=== PATIENT | female | born 1995 | race Caucasian/White ===

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

== ENCOUNTER → 2017-10-26 21:10 | Observation (INO) ==
[2017-10-26 19:28] LABS: Amphetamine Screen,Urine Negative ng/mL (Cutoff=1000); Barbiturate Screen,Urine Negative ng/mL (Cutoff=200); Benzodiazepines Screen,Urine Negative ng/mL (Cutoff=200); Cannabinoid Screen,Urine Negative ng/mL (Cutoff = 50); Cocaine Screen,Urine Negative ng/mL (Cutoff= 300); Opiate Screen,Urine Negative ng/mL (Cutoff=300); Phencyclidine Screen,Urine Negative ng/mL (Cutoff=25)
--- NOTE | 2017-10-26 20:56 | OB/GYN Progress Note ---
Date of Encounter: 10/27/17 Time of Encounter: 20:55 - Assessment and Plan (1) 36 weeks gestation of Status: Acute (2) Uterine contractions Status: Acute Frequent contractions on toco. SVE 3/80/-1, unchanged after 2 hours. Pt requesting discharge home. We discussed having her stay a couple more hours since she lives 45 minutes away and has transportation issues. Pt declines. Friend with pt at this time states she will be available through night to bring pt back if needed. Discharge home with precautions. (3) Vaginal bleeding during Status: Acute Post-coital spotting reported. No bleeding on exam now. Subjective - Subjective Interval history: 21 year-old presenting to L&D via helicopter from [facility] for vaginal bleeding and contractions. She reports she had some spotting that started this afternoon and she had a small, dime size, clot x1. No bleeding since. Last intercourse last evening. She also reports frequent contractions. No gushes of fluid or heavy bleeding. Good FM. No other complaints. Antepartum ROS: vaginal bleeding, movement normal, contractions, no loss of fluid Objective - Vital Signs Vital Signs: Intake and Output 10/26/17 10/26/17 10/26/17 07:59 15:59 23:59 Other: Weight 72.575 kg Patient Weight 10/26/17 23:59 Weight 72.575 kg - Exam FHR: category 1 FHR comments: NST reactive Auscultation: bilateral: normal Abdomen: Present: soft, gravid Uterus: Present: normal Cervical dilation: 80/-1 repeat after 2 hours unchanged Comments: no vaginal bleeding noted on exam
== END | disposition home or self-care (01) ==
LOC: 1NENULAB
PROVIDERS: ADMIT Registered Nurse; ATTEND Registered Nurse

== ENCOUNTER 2017-11-03 22:37 | Inpatient (IN) ==
[2017-11-03 21:05] LABS: Basophils % 0.2 %; Eosinophils % 0.3 %; Hemoglobin 10.3 g/dL (11.5-15.4); Immature Granulocytes % 1.1 % (0-4); Lymphocytes # 1.5 K/mcL (0.6-4.6); Lymphocytes % 14.6 %; Mean Corpuscular HGB Conc 34.3 g/dL (31.6-35.5); Mean Corpuscular Hemoglobin 31.5 pg (28.0-33.3); Mean Corpuscular Volume 91.7 fL (83.0-100.0); Mean Platelet Volume 10.3 fL (9.4-12.4); Monocytes # 1.3 K/mcL (0.0-1.3); Neutrophils # 7.3 K/mcL (1.6-8.9); Platelet Count 174 K/mcL (140-400); Red Blood Count 3.27 M/mcL (3.82-4.97); Segmented Neutrophils % 70.8 %
--- NOTE | 2017-11-03 21:08 | OB/GYN History & Physical ---
Date of Encounter: 11/03/17 Time of Encounter: 20:37 Assessment and Plan (1) Spontaneous rupture of amniotic membranes Current visit: Yes Status: Acute (2) 37 weeks gestation of Current visit: Yes Status: Acute (3) Intrauterine Current visit: Yes Status: Acute Admit to labor and delivery for observation of labor Expectant management Labs-CBC and clot to hold May have epidural upon request Continuous monitoring Anticipate Dr. Suero is OB sexual assault response coordinator and is available as needed History of Present Illness Chief complaint: SROM HPI: Ms. Galvan is a 21 year old female at 37 weeks 1 day gestation with an estimated date of of 11/23/17 dated by LMP. She presents with complaints of spontaneous rupture membranes at 1820 this evening. She states shortly after contractions started. She denies odor to fluid. She endorses good movement and denies vaginal bleeding. This has been uncomplicated. She is seen Dr. Hannon throughout her . records are available electronically and have been reviewed. Labs: B+ GBS- Hep B- HIV- T. Palladium- GC/CL- Rubella immune Varicella immune Past Med Surg Social Fam HX - Past Medical History Medical history: non-contributory Psychiatric history: no psych history - Past Surgical History Additional surgical history: tonsillectomy - Social History Smoking Status: Current every day smoker Smokeless Tobacco Status: No Alcohol use: none Drug use: none - Family History Mother Living Status: Still Living Hx Family Cardiac Disorders: Yes (HTN) Hx Family Respiratory Disorders: No Hx Family Cancer: No Hx Family GI Disorders: No Hx Family Endocrine Disorder: No Hx Family Neuromuscular Disorders: No Hx Family Neurologic Disorders: No Hx Family HEENT Disorders: No Hx Family Autoimmune Disorders: No Obstetrical History - Pregnancies : 2 Para: 1 Term: 1 (09/2016, IOL, 39wks, male, 8lb 1oz, no complications, Roger) : 0 Ab's: 0 Livin Medications and Allergies Vit/FA 1 each PO BID 11/03/17 [History] 3 Allergy/AdvReac Type Severity Reaction Status Date / Time No Known Allergies Allergy Verified 08/12/17 10:56 Review of System OB All systems PM: reviewed and no additional remarkable complaints except as stated Exam - Constitutional Constitutional: well developed, well nourished, average body habitus, moderate distress - HEENT HEENT: PERRL, Normocephaly, Mucus Membranes Moist - Neck Neck exam: full ROM - Lungs Respiratory exam: CTAB - Cardiovascular Cardiovascular exam: RRR, +S1, +S2 - Breasts Breast: bilateral: normal - Abdomen Abdomen: Present: bowel sounds normal, gravid, non tender - Extremities Extremities exam: full ROM, normal capillary refill, normal inspection, pedal edema, radial pulses palpable and symmetrical - Vulva Vulva: bilateral: normal - Vagina Vagina: Present: normal moisture - Cervix Dilation: 6 Effacement: 90 Station: +1 - Uterus Uterus exam: Present: normal size, normal contour - Adnexa Adnexa: bilateral: normal - Anus/Rectum Anus/Rectum: Present: normal perianal skin Results Result Diagrams: 11/03/17 20:50 All other labs normal. - VTE Reasons for not Prescribing Prophylaxis: Treatment not Indicated - Low risk for VTE
--- NOTE | 2017-11-03 21:20 | Anesthesia Evaluation PreOp ---
Date of Encounter: 11/03/17 Time of Encounter: 19:10 - Past History Planned Operation: MJ Pulmonary History: Smoker, Pack/yr (1/2pk per day x 1 yr) EMBOSSER APPRENTICE History: Denies Any Significant HX Other Medical History: Denies Any Significant HX Anesthesia History: No Prior Anesthetic Complications, Past Anesthesia ( tonsillectomy) : Yes Alcohol Use: none Drug use: none Medications and Allergies Vit/FA 1 each PO BID 11/03/17 [History] 3 Allergy/AdvReac Type Severity Reaction Status Date / Time No Known Allergies Allergy Verified 08/12/17 10:56 - Meds/Allergy Pre-op Review Medications Reviewed: Yes Allergies Reviewed: Yes Beta Blockers on Current Med List: No Anesthesia Results - Labs 11/03/17 20:50 Anesthesia Exam BP 139/80 P 120 R 18 T 97.8 Height: 5'3" Weight: 167.4 lbs NPO (# of Hours): 2 Pain Scale: 6 Pain Scale Used: Numeric (1 - 10) - HEENT Pupil (Motor): Pupils equal Mallampati: II Teeth: Normal Oral Opening: Greater than 3 - EMBOSSER APPRENTICE LOC: Oriented EMBOSSER APPRENTICE Motor: Normal RUE, Normal LUE, Normal RLE, Normal LLE, Normal Face EMBOSSER APPRENTICE Sensory: Normal: RUE, LUE, RLE, LLE, Face - Cardiac Rhythm: Regular Murmur: None JVD: No Carotid Bruit: No - Pulmonary Breath Sounds: bilateral Clear Respiratory Effort: Symmetrical Anesthesia Assess/Plan ASA Score: 2 Modified Genesis Scale for Level of Consciousness: Cooperative, oriented, and tranquil Anesthetic Plan: Regional Autologous Blood: Yes Monitoring Plan: Standard Monitors Recovery Plan: Other
--- NOTE | 2017-11-03 22:00 | Anesthesia Procedures ---
Date of Encounter: 11/03/17 Time of Encounter: 21:19 Procedures: Anesthesia - Epidural/Spinal Patient ID/Chart reviewed: Yes Patient examined: Yes OB Eval: Gestational age: 37.1 OB Eval: : 2 OB Eval: Hx Para: 1 OB Eval: Dilated at (cm): 6 OB Eval: Contractions: Non-stressed pattern Consent Obtained: Yes Supplemental Oxygen: None/Room Air Site Prep: Aseptic Technique, Sterile prep and drape, Povidone-Iodine 1% Patient position: upright Local Anesthetic: Lidocaine 1% Amount of Local Anesthetic used: 3 Touhy Needle Gauge: 18 Touhy Needle Depth (cm): 6 Catheter Depth at Skin (cm): 15 Test Dose (1.5% Lido + Epi): Volume given (mls): 3 Test Dose Result: Negative Loading Dose: 0.25% Marcaine (mls): 10 Loading Dose: Fentanyl (mcg): 100 Loading Dose Administered: Thru Catheter Infusion Med: 0.125% Bupivacaine w/ 2 mcg/ml Fentanyl Infusion Rate (mls/hr): [address]: Tegaderm, Tape Interspace Used: L3-L4 Loss of Resistance (DONALD): Yes Blood: No CSF: No Paresthesia: No Procedure: MJ placed 1st pass in upright position without any immediate noted complications VSS and FHT stable throughout. Vitals + FHT's: 2119 BP 139/80 P 120 R 20 2145 BP 128/67 P 107 FHT 146
--- NOTE | 2017-11-03 22:07 | OB Labor Progress Note ---
Date of Encounter: 11/03/17 Time of Encounter: 22:05 Labor Progress Note - Subjective Subjective: Patient becoming more comfortable with epidural - Cervix Cervix: 9/100/+1 - Heart Tones Heart Tones: Baseline 150 Moderate variability Accelerations present 15 x 15 Variable decelerations FHR category II - [place]: Contractions every 2-4 minutes and palpate strong - Interventions Interventions: SVE - Plan Plan: Continue expectant management Kira vallejo Anticipate
[2017-11-03 22:15] LABS: Amphetamine Screen,Urine Negative ng/mL (Cutoff=1000); Barbiturate Screen,Urine Negative ng/mL (Cutoff=200); Benzodiazepines Screen,Urine Negative ng/mL (Cutoff=200); Cannabinoid Screen,Urine Negative ng/mL (Cutoff = 50); Cocaine Screen,Urine Negative ng/mL (Cutoff= 300); Opiate Screen,Urine Negative ng/mL (Cutoff=300); Phencyclidine Screen,Urine Negative ng/mL (Cutoff=25)
[~2017-11-03 22:37] MED LIST: *HR* FentaNYL (PF) 100 MCG/2 ML VIAL EP ONE; *HR* FentaNYL (PF) 100 MCG/2 ML VIAL ONE; *HR* Nalbuphine 10 MG/ML AMPUL IVP PRN; Bupivacaine-MPF 0.25% 10 ML VIAL EP ONE; Bupivacaine-MPF 0.25% 10 ML VIAL ONE; EPHEDrine 50 MG/ML VIAL IVP PRN; Epidural Premix (fent/bupiv) 110 ML EP ONE; Epidural Premix (fent/bupiv) 110 ML EP SCH; Famotidine 20 MG/2 ML VIAL IVP PRN; Lidocaine -MPF 1% 5 ML AMPUL ONE; Lidocaine 1% 20 ML MDV ONE; Metoclopramide 10 MG/2 ML VIAL IVP PRN; Naloxone 0.4 MG/ML INJ IVP PRN; Ondansetron 4 MG/2 ML VIAL IVP PRN; Ringers Solution, Lactated 1,000 ML IVC SCH; Ringers Solution, Lactated 1,000 ML ONE
--- NOTE | 2017-11-03 23:21 | OB/GYN Procedure Note ---
Delivery - Delivery Date: 11/03/17 Provider: Halie Lopez Intrapartum events: none Delivery induction: none Delivery monitor: external FHT, external uterine Anesthesia: epidural Quantitated Blood Loss: 300 - (s) Infant A Delivery Date: 11/03/17 Infant Delivery Time: 23:01 Presentation: vertex Position: JASBIR Route of delivery: Gender: Female Viability: Viable Pounds: 6 Ounces: 4 Weight Gram: 2.835 kg at 1 minute: 8 at 5 mins: 9 Shoulder Dystocia: not encountered Specimens collected: cord blood Placenta: spontaneous Cord: nuchal cord, 3 umbilical vessels, delivered through nuchal - Repair Episiotomy: none Laceration Description: None - Complications Delivery complications: none Delivery comments: This is a 21-year-old G2 now P2 who was admitted for active labor with spontaneous rupture of membranes. She progressed spontaneously to the second stage of labor. She pushed for 1 contraction. A nuchal cord 1 was identified. The was delivered through the nuchal cord. She delivered a viable female infant, JASBIR over an intact perineum. The infant was placed on the maternal abdomen where the mouth and nares were suctioned by nursery. scores were 8 at 1 minute and 9 at 5 minutes. The placenta delivered (Perez) spontaneously, intact, with a three-vessel cord. Inspection revealed no perineal, sidewall, or cervical lacerations. The uterus was firm with no active bleeding. EBL was 300 mL. Placenta and umbilical artery blood gas were not sent. There were no complications during the procedure. Mom and baby are stable following delivery. - Disposition Mom disposition: stable in LDR disposition: stable in LDR
[2017-11-03] MEDS ORDERED: Acetaminophen 325 MG TABLET PO PRN (23:43)
[2017-11-03] MEDS ORDERED: Benzocaine/Menthol 56 GM AEROSOL SPRAY TP PRN (23:43)
[2017-11-03] MEDS ORDERED: Oxytocin 20 units/ LR 1000 mL 20 UNIT/1,000 ML BAG IVC SCH (23:45)
[2017-11-04] MEDS: Ibuprofen 600 MG TABLET PO PRN ×4 (01:57→20:07)
[2017-11-04 05:21] LABS: Basophils % 0.2 %; Eosinophils % 0.2 %; Hematocrit 29.1 % (35.3-44.9); Hemoglobin 9.8 g/dL (11.5-15.4); Immature Granulocytes % 1.1 % (0-4); Lymphocytes # 1.5 K/mcL (0.6-4.6); Lymphocytes % 15.3 %; Mean Corpuscular HGB Conc 33.7 g/dL (31.6-35.5); Mean Corpuscular Hemoglobin 31.1 pg (28.0-33.3); Mean Corpuscular Volume 92.4 fL (83.0-100.0); Mean Platelet Volume 10.6 fL (9.4-12.4); Monocytes % 9.9 %; Neutrophils # 7.2 K/mcL (1.6-8.9); Platelet Count 175 K/mcL (140-400); Red Blood Count 3.15 M/mcL (3.82-4.97); Red Cell Distribution Width 14.1 % (11.5-14.5); Segmented Neutrophils % 73.3 %
--- NOTE | 2017-11-04 08:42 | OB/GYN Progress Note ---
Date of Encounter: 11/04/17 Time of Encounter: 08:40 - Assessment and Plan (1) Vaginal delivery Current Visit: No Status: Acute Continue routine care anticipate discharge home tomorrow (2) anemia Current Visit: Yes Status: Acute Continue ferrous sulfate daily Subjective - Subjective Principal diagnosis: day 1 vaginal delivery Interval history: Patient day 1. Patient doing well. Patient denies any pain at this time. Patient reports: appetite normal, voiding normally, pain well controlled, ambulating normally : doing well Objective - Latest Vital Signs Latest vital signs: Vital Signs Temp Pulse Resp BP Pulse Ox 11/04/17 03:55 98.6 F 96 14 117/69 97 11/04/17 03:00 98.4 F 102 14 116/67 98 11/04/17 01:45 98.8 F 94 14 126/81 98 11/04/17 01:30 98.8 F 96 16 130/81 98 11/04/17 01:15 98.8 F 104 14 127/84 100 11/04/17 01:00 98.5 F 94 14 120/68 100 11/04/17 00:45 98.6 F 99 14 126/75 100 Intake and Output 11/03/17 11/04/17 11/04/17 23:59 07:59 15:59 Output Total 450 / 450 Balance -450 / -450 Output: Urine 450 / 450 Other: Weight 75.1 kg 72.6 kg Patient Weight 11/04/17 23:59 Weight 72.6 kg - Exam Lungs: bilateral: normal Chest: Normal S1, Normal S2 Extremities: Present: normal Abdomen: Present: normal appearance, soft Uterus: Present: normal, firm Uterus Position: 1 Finger Below Umbilicus, Midline - Labs Labs: Laboratory Results - last 24 hr 11/03/17 11/03/17 11/04/17 20:36 20:50 04:43 WBC 10.3 9.9 RBC 3.27 L 3.15 L Hgb 10.3 L 9.8 L Hct 30.0 L 29.1 L MCV 91.7 92.4 MCH 31.5 31.1 MCHC 34.3 33.7 RDW 14.0 14.1 Plt Count 174 175 MPV 10.3 10.6 Immature Gran % 1.1 1.1 Seg Neutrophils % 70.8 73.3 Lymphocytes % 14.6 15.3 Monocytes % 13.0 9.9 Eosinophils % 0.3 0.2 Basophils % 0.2 0.2 Neutrophils # 7.3 7.2 Lymphocytes # 1.5 1.5 Monocytes # 1.3 1.0 Eosinophils # 0.0 0.0 Basophils # 0.0 0.0 Urine Opiates Screen Negative Ur Barbiturates Screen Negative Ur Phencyclidine Scrn Negative Ur Amphetamines Screen Negative U Benzodiazepines Scrn Negative Urine Cocaine Screen Negative U Marijuana (THC) Screen Negative
[2017-11-04] MEDS: Prenatal Vit/FA 1 EACH TABLET PO SCH (08:53)
[2017-11-05] MEDS: Ibuprofen 600 MG TABLET PO PRN (08:21)
[2017-11-05] MEDS: Prenatal Vit/FA 1 EACH TABLET PO SCH ×2 (08:21→08:22)
[2017-11-05 09:12] VITALS: BP 117/76
--- NOTE | 2017-11-05 10:58 | Discharge Summary ---
Date of Encounter: 11/05/17 Time of Encounter: 10:55 - Discharge Diagnosis (1) anemia Priority: Secondary Status: Acute (2) Vaginal delivery Priority: Primary Status: Acute Comments: Pt meeting all milestones. - Discharge Medications Prescriptions: Ibuprofen [Motrin] 600 mg PO Q6HR PRN #30 tablet PRN Reason: Cramping Docusate [Colace] 100 mg PO BID #60 capsule Ferrous Sulfate 325 mg PO DAILY #30 tablet Home Medications: Vit/FA 1 each PO BID 11/03/17 [History] Benzocaine/Menthol [place] [Dermoplast [place]] 1 appl TP QID PRN aerosol 11/05/17 [Rx] Docusate [Colace] 100 mg PO BID #60 capsule 11/05/17 [Rx] Ferrous Sulfate 325 mg PO DAILY #30 tablet 11/05/17 [Rx] Ibuprofen [Motrin] 600 mg PO Q6HR PRN #30 tablet 11/05/17 [Rx] Allergies/Adverse Reactions: 3 Allergy/AdvReac Type Severity Reaction Status Date / Time No Known Allergies Allergy Verified 08/12/17 10:56 Data Procedures and tests throughout hospitalization: Laboratory Tests 11/03/17 11/03/17 11/04/17 20:36 20:50 04:43 WBC 10.3 9.9 RBC 3.27 L 3.15 L Hgb 10.3 L 9.8 L Hct 30.0 L 29.1 L MCV 91.7 92.4 MCH 31.5 31.1 MCHC 34.3 33.7 RDW 14.0 14.1 Plt Count 174 175 MPV 10.3 10.6 Immature Gran % 1.1 1.1 Seg Neutrophils % 70.8 73.3 Lymphocytes % 14.6 15.3 Monocytes % 13.0 9.9 Eosinophils % 0.3 0.2 Basophils % 0.2 0.2 Neutrophils # 7.3 7.2 Lymphocytes # 1.5 1.5 Monocytes # 1.3 1.0 Eosinophils # 0.0 0.0 Basophils # 0.0 0.0 Urine Opiates Screen Negative Ur Barbiturates Screen Negative Ur Phencyclidine Scrn Negative Ur Amphetamines Screen Negative U Benzodiazepines Scrn Negative Urine Cocaine Screen Negative U Marijuana (THC) Screen Negative Date of admission: 11/03/17 23:33 Primary care physician: JEAN Christy Consults: 11/03/17 23:43 Consult to Chemist Physical [CONS] Routine Comment: Vaginal delivery, consult needed Consult to Line Appliance Assembler [CONS] Routine Reason for SW Consult: teenage motherhood/closely spaced pregnancies Discharging clinician: Daysi Llanes Anticipated date of discharge: 11/05/17 - Patient Status Disposition: Home, Self-Care Condition: Good Functional capacity at discharge: independent ambulation Overall status at discharge: patient is progressing back to baseline - Discharge Instructions Follow Up With: Carole Vincent CNP [Primary Care Provider] - Halie Lopez [Advanced Practice Nurse] - Hospital Course Reason for admission: active labor Delivery: Episiotomy: none Laceration: none Other procedures: none complications: none Discharge diagnosis: IUP at term delivered [place] baby: female Hospital course: - Delivery Date: 11/03/17 Provider: Halie Lopez Intrapartum events: none Delivery induction: none Delivery monitor: external FHT, external uterine Anesthesia: epidural Quantitated Blood Loss: 300 - Infant (s) A Infant Delivery Date: 11/03/17 Delivery Time: 23:01 Presentation: vertex Position: JASBIR Route of delivery: Gender: Female Viability: Viable Pounds: 6 Ounces: 4 Weight Gram: 2.835 kg at 1 minute: 8 at 5 mins: 9 Shoulder Dystocia: not encountered Specimens collected: cord blood Placenta: spontaneous Cord: nuchal cord, 3 umbilical vessels, delivered through nuchal - Repair Episiotomy: none Laceration Description: None - Complications Delivery complications: none - Disposition Mom disposition: home PPD2 disposition: home with mother, bottle feeding Time Attestation: Total time spent providing and/or coordinating discharge services: Time Spent: Less than 30 minutes Exam - Constitutional Vitals: Temp Pulse Resp BP Pulse Ox 98.1 F 82 14 117/76 98 11/05/17 09:07 11/05/17 09:07 11/05/17 09:07 11/05/17 09:07 11/04/17 20:05 General appearance IM: A&O X 3 - Respiratory Respiratory exam: Present: CTAB - Cardiovascular Cardiovascular exam IM: Present: RRR - GI/Abdominal GI/Abdominal exam IM: soft - External exam: normal external exam Uterine Tone: Firm - Extremities Exam Extremities exam IM: Present: normal inspection - Neurological Exam Neurological exam: normal gait, oriented X3 - Psychiatric Additional comments: reports tired but otherwise good mood
== END 2017-11-05 17:51 | disposition home or self-care (01) | DRG 560 ==
LOC: 1NENULAB → 1NENUOBS 11-04 00:41
PROVIDERS: ADMIT Advanced Practice Midwife; ATTEND Advanced Practice Midwife

== ENCOUNTER 2019-10-07 17:42 | Observation (INO) ==
[2019-10-07 18:20] LABS: Bilirubin,Urine Negative (Negative); Blood,Urine Negative (Negative); Clarity,Urine Cloudy (Clear); Color,Urine Yellow (Yellow); Glucose,Urine (UA) Normal (Normal); Ketones,Urine Negative (Negative); Leukocyte Esterase,Urine Moderate (Negative); Nitrite,Urine Negative (Negative); PH,Urine 6.5 pH Units (5.0-8.0); Protein,Urine Trace mg/dL (Neg-Trace); Specific Gravity,Urine 1.025 (1.010-1.025); Urobilinogen,Urine Normal (Normal)
[2019-10-07 18:22] LABS: Hyaline Casts,Urine None Seen per lpf (None-Few); Squamous Epithelial Cell,Urine Many per lpf (None-Few)
[2019-10-07 18:33] LABS: Amorphous Sediment,Urine Few per hpf (Few); Bacteria,Urine Few per hpf (None-Few); Mucus,Urine Few per lpf (Few)
[2019-10-08 02:38] LABS: Candida DNA Not Detected (Not Detect); Gardnerella DNA DETECTED (Not Detect); Trichomonas DNA Not Detected (Not Detect)
== END 2019-10-07 19:16 | disposition home or self-care (01) ==
LOC: 1NENULAB
PROVIDERS: ADMIT Registered Nurse; ATTEND Registered Nurse

== ENCOUNTER 2019-10-12 19:16 | Inpatient (IN) ==
[~2019-10-12 19:16] MED LIST changes: -*HR* FentaNYL (PF) 100 MCG/2 ML VIAL EP ONE; +*HR* FentaNYL (PF) 100 MCG/2 ML VIAL IVP PRN; -*HR* FentaNYL (PF) 100 MCG/2 ML VIAL ONE; -*HR* Nalbuphine 10 MG/ML AMPUL IVP PRN; +Azithromycin 500 MG in 0.9 % Sodium Chloride 250 ML IVPB ONE; -Bupivacaine-MPF 0.25% 10 ML VIAL EP ONE; -Bupivacaine-MPF 0.25% 10 ML VIAL ONE; -EPHEDrine 50 MG/ML VIAL IVP PRN; -Epidural Premix (fent/bupiv) 110 ML EP ONE; -Epidural Premix (fent/bupiv) 110 ML EP SCH; -Lidocaine -MPF 1% 5 ML AMPUL ONE; +Lidocaine 1% 20 ML MDV INFILT PRN; -Lidocaine 1% 20 ML MDV ONE; -Ringers Solution, Lactated 1,000 ML ONE
[2019-10-12] MEDS ORDERED: EPHEDrine 50 MG/ML VIAL IVP PRN (19:23)
[2019-10-12] MEDS ORDERED: Epidural Premix (fent/bupiv) 110 ML EP SCH (19:30)
[2019-10-12 19:39] LABS: Basophils % 0.2 %; Eosinophils # 0.1 K/mcL (0.0-0.6); Eosinophils % 0.7 %; Hematocrit 32.5 % (35.3-44.9); Hemoglobin 10.5 g/dL (11.5-15.4); Lymphocytes # 1.7 K/mcL (0.6-4.6); Lymphocytes % 12.9 %; Mean Corpuscular HGB Conc 32.3 g/dL (31.6-35.5); Mean Corpuscular Hemoglobin 30.3 pg (28.0-33.3); Mean Corpuscular Volume 93.9 fL (83.0-100.0); Mean Platelet Volume 10.5 fL (9.4-12.4); Monocytes % 7.5 %; Neutrophils # 10.2 K/mcL (1.6-8.9); Platelet Count 230 K/mcL (140-400); Red Blood Count 3.46 M/mcL (3.82-4.97); Red Cell Distribution Width 13.6 % (11.5-14.5); Segmented Neutrophils % 77.7 %; White Blood Count 13.2 K/mcL (4.3-11.1)
[2019-10-12 20:16] LABS: Amphetamine Screen,Urine Negative ng/mL (Cutoff=1000); Barbiturate Screen,Urine Negative ng/mL (Cutoff=200); Benzodiazepines Screen,Urine Negative ng/mL (Cutoff=200); Cannabinoid Screen,Urine Negative ng/mL (Cutoff = 50); Cocaine Screen,Urine Negative ng/mL (Cutoff= 300); Opiate Screen,Urine Negative ng/mL (Cutoff=300); Phencyclidine Screen,Urine Negative ng/mL (Cutoff=25)
[2019-10-12] MEDS ORDERED: Oxytocin 20 units/ LR 1000 mL 20 UNIT/1,000 ML BAG IVC SCH (22:00)
[2019-10-13] MEDS ORDERED: Rho Immune Globulin 1,500 UNIT SYRINGE IM PRN (01:53)
[2019-10-13] MEDS ORDERED: Oxytocin 20 units/ LR 1000 mL 20 UNIT/1,000 ML BAG IVC SCH (01:53)
[2019-10-13] MEDS ORDERED: Benzocaine/Menthol 56 GM AEROSOL SPRAY TP PRN (01:53)
[2019-10-13] MEDS ORDERED: Measles/Mumps/Rubella Vacc 0.5 ML VIAL SQ PRN (01:53)
[2019-10-13] MEDS ORDERED: Oxytocin 20 units/ LR 1000 mL 20 UNIT/1,000 ML BAG IVC ONE (01:53)
[2019-10-13] MEDS: Acetaminophen 325 MG TABLET PO PRN ×2 (02:43→07:31)
[2019-10-13 05:35] LABS: Basophils % 0.1 %; Eosinophils % 0.2 %; Hematocrit 33.4 % (35.3-44.9); Hemoglobin 10.9 g/dL (11.5-15.4); Immature Granulocytes % 0.8 % (0-4); Lymphocytes # 1.6 K/mcL (0.6-4.6); Lymphocytes % 10.9 %; Mean Corpuscular HGB Conc 32.6 g/dL (31.6-35.5); Mean Corpuscular Hemoglobin 30.9 pg (28.0-33.3); Mean Corpuscular Volume 94.6 fL (83.0-100.0); Mean Platelet Volume 10.9 fL (9.4-12.4); Monocytes # 1.2 K/mcL (0.0-1.3); Monocytes % 7.9 %; Neutrophils # 11.7 K/mcL (1.6-8.9); Platelet Count 206 K/mcL (140-400); Red Blood Count 3.53 M/mcL (3.82-4.97); Red Cell Distribution Width 13.3 % (11.5-14.5); Segmented Neutrophils % 80.1 %; White Blood Count 14.6 K/mcL (4.3-11.1)
[2019-10-13] MEDS ORDERED: Prenatal Vit/FA 1 EACH TABLET PO SCH (09:00)
[2019-10-13 10:25] VITALS: BP 124/78
== END 2019-10-13 14:06 | disposition home or self-care (01) | DRG 560 ==
LOC: 1NENULAB → 1NENUOBS 10-13 01:40
PROVIDERS: ADMIT Obstetrics & Gynecology; ATTEND Obstetrics & Gynecology